=== PATIENT | female | born 1950 | race Caucasian/White ===

== ENCOUNTER → 2016-02-17 | Outpatient (CLI) | payer OTHER ==
--- NOTE | 2016-02-17 11:29 | CT ---
CT Chest, Without Contrast February 17, 2016 Indication: Follow up pulmonary nodule. Technique: 4 mm thick helically acquired slices were obtained through the chest utilizing low-dose pr otocol. Dose reduction techniques were utilized. Comparison: CT chest dated September 18, 2012, November 10, 2013, and January 12, 2015 Findings: The well-circumscribed ovoid ground-glass nodule in superior segment right lower lobe, asuncion uring 8 x 6 mm on image 83 of series 4, is unchanged since September 2012 on the axial and reconstructed sagittal imaging. The tiny benign 3 mm nodule along the left major fissure on image 96 of series 4 i s unchanged. No new pulmonary nodule, spiculated lesion, or ground-glass opacity has developed. Lungs are well aer ated and clear. No pulmonary fibrosis or emphysema has developed. Mild diffuse peribronchial thickeni ng is unchanged. No endobronchial lesion or bronchiectasis. Heart size is normal with minimal calcified coronary plaque. The thoracic aorta is normal caliber wit h minimal calcified plaque. No pericardial or pleural effusion. No enlarged lymph node or mass has de veloped throughout the axilla, mediastinum, pulmonary bernadine, or imaged portion of the upper abdomen. K yphosis in the long posterior fusion construct is unchanged. Impression: 1. 8-mm right lower lobe ground-glass nodule is unchanged since 2012. Fleischner Society recommends m inimum surveillance for 3 years of semisolid ground-glass nodules. Stability over the 3 year interval favors a benign entity. Given history of smoking, recommend continued intermittent surveillance. 2. No new pulmonary nodule or lymphadenopathy. 3. Minimal calcified coronary plaque.
== END ==
LOC: FIMAGING 10:29
PROVIDERS: ATTEND Family Medicine
DX: R91.1 Solitary pulmonary nodule (principal)

== ENCOUNTER → 2016-06-01 | Outpatient (CLI) | payer OTHER | LOC: FIMAGING 12:13 → EDSTATUS 12:14 | PROVIDERS: ATTEND Physician Assistant Surgical | DX: M46.92 Unspecified inflammatory spondylopathy, cervical region (principal); S32.018A Other fracture of first lumbar vertebra, initial encounter for closed fracture; R93.8 Abnormal findings on diagnostic imaging of other specified body structures ==

== ENCOUNTER → 2016-06-21 | Outpatient (CLI) | payer OTHER | LOC: FIMAGING 09:58 | PROVIDERS: ATTEND Family Medicine | DX: M46.1 Sacroiliitis, not elsewhere classified (principal); M17.12 Unilateral primary osteoarthritis, left knee; G62.9 Polyneuropathy, unspecified | CPT/HCPCS: 72170; 78306; A9503 ==

== ENCOUNTER → 2016-08-24 | Outpatient (CLI) | payer OTHER | LOC: FIMAGING 09:54 | PROVIDERS: ATTEND Family Medicine | DX: Z12.31 Encounter for screening mammogram for malignant neoplasm of breast (principal) | CPT/HCPCS: G0202 ==